=== PATIENT | male | born 1955 | race Caucasian/White ===

== ENCOUNTER 2022-12-15 09:20 | Day surgery (SDC) | payer MEDICARE, OTHER ==
[2022-12-15] MEDS: Lactated Ringers 1,000 ML IV SCH (09:33)
[2022-12-15] MEDS ORDERED: Propofol 200 MG/20 ML SDV ONE (10:16)
[2022-12-15] MEDS ORDERED: fentaNYL 100 MCG/2 ML SDV ONE (10:16)
[2022-12-15 12:24] VITALS: PULSE 83
[2022-12-15 12:50] VITALS: BP 150/79
== END 2022-12-15 13:48 | disposition home or self-care (01) ==
LOC: VM.SDS 09:20
PROVIDERS: ATTEND Family Medicine
DX: D12.6 Benign neoplasm of colon, unspecified (principal); K57.30 Diverticulosis of large intestine without perforation or abscess without bleeding; E78.5 Hyperlipidemia, unspecified; Z79.82 Long term (current) use of aspirin; Z86.010 Personal history of colon polyps
CPT/HCPCS: 00811; 88305; 88341; 88342; J2704; J3010; J7120

== ENCOUNTER 2023-03-10 11:04 | Emergency (ER) | payer MEDICARE, OTHER ==
[2023-03-10 11:26] LABS: EOSINOPHILS PERCENT AUTO 0.2 % (0.0-4.0); HEMATOCRIT 40.1 % (40.0-52.0); HEMOGLOBIN 14.1 g/dL (14.0-18.0); IMMATURE GRAN ABSOLUTE AUTO 0.02 x10^3/uL (0.00-0.07); LYMPHOCYTES ABSOLUTE AUTO 0.6 x10^3/uL (1.0-4.8); LYMPHOCYTES PERCENT AUTO 9.9 % (25.0-50.0); MEAN CORPUSCULAR HEMOGLOBIN 30.1 pg (26.0-32.0); MEAN CORPUSCULAR HGB CONC 35.2 g/dL (32.0-36.0); MEAN CORPUSCULAR VOLUME 85.7 fL (78.0-93.0); MONOCYTES ABSOLUTE AUTO 0.2 x10^3/uL (0.0-0.8); MONOCYTES PERCENT AUTO 2.6 % (2.0-11.0); NEUTROPHILS ABSOLUTE AUTO 5.6 x10^3/uL (1.8-7.7); PLATELET COUNT,PLT 138 x10^3/uL (130-400); RED BLOOD CELL COUNT 4.68 x10^6/uL (4.5-6.0); WHITE BLOOD CELL COUNT,WBC 6.5 x10^3/uL (4.0-10.0)
[2023-03-10 11:45] LABS: A/G RATIO 1.03; ALANINE AMINOTRANSFERASE,ALT 40 U/L (16-63); ALKALINE PHOSPHATASE 93 U/L (46-116); ASPARTATE AMNIOTRANSFERASE,AST 31 U/L (15-37); BILIRUBIN TOTAL 0.4 mg/dL (0.2-1.0); BLOOD UREA NITROGEN,BUN 18 mg/dL (7-18); CALCIUM 8.5 mg/dL (8.5-10.1); CARBON DIOXIDE,CO2 27 mmol/L (21-32); CHLORIDE,CL 100 mmol/L (98-107); CREATININE 0.8 mg/dL (0.70-1.30); GLUCOSE RANDOM 125 mg/dL (70-99); POTASSIUM,K 3.7 mmol/L (3.5-5.1); PROTEIN TOTAL,TP 5.9 g/dL (6.4-8.2); SODIUM,NA 138 mmol/L (136-145)
[2023-03-10 11:47] LABS: ANION GAP 14.7 mmol/L (5-15); C-REACTIVE PROTEIN < 0.2 mg/dL (<=0.9); ESTIMATED GFR 97 mL/min (>=60)
[2023-03-10 12:37] LABS: BILIRUBIN,URINE NEGATIVE (NEGATIVE); COLOR,URINE YELLOW (YELLOW); GLUCOSE,URINE NEGATIVE (NEGATIVE); KETONES,URINE NEGATIVE (NEGATIVE); LEUKOCYTE ESTERASE,URINE NEGATIVE (NEGATIVE); NITRITE,URINE NEGATIVE (NEGATIVE); OCCULT BLOOD,URINE NEGATIVE (NEGATIVE); PROTEIN,URINE NEGATIVE (NEGATIVE)
[2023-03-10 12:39] LABS: APPEARANCE,URINE CLEAR (CLEAR)
[2023-03-10 14:10] VITALS: BP 128/78; PULSE 78
== END 2023-03-10 13:43 | disposition home or self-care (01) ==
LOC: VM.ED 11:04
DX: R53.1 Weakness (principal); E78.00 Pure hypercholesterolemia, unspecified; Z79.899 Other long term (current) drug therapy; Z79.82 Long term (current) use of aspirin
CPT/HCPCS: 70450; 80053; 81003; 85025; 86140; 99284